=== PATIENT | male | born 2000 | race Caucasian/White ===

== ENCOUNTER 2025-08-27 18:11 | Emergency (ER) | payer OTHER ==
[~2025-08-27] VITALS: Ht 162.6 cm; Wt 74.8 kg
[2025-08-27 18:33] VITALS: BP 137/86; PULSE 101; RESP 18; TEMP 98.1; O2SAT 100
[2025-08-27] MEDS ORDERED: OLOP5DRO21 OP (18:43)
[2025-08-27] MEDS ORDERED: CARB10DR OP (18:43)
--- NOTE | 2025-08-27 18:43 | ERN ---
General Chief Complaint: Blurred/Double Vision Stated Complaint: BLURRED VISION Time Seen by MD: 18:18 Source: patient, family History of Present Illness Initial Comments PATIENT IS A 24-YEAR-OLD MALE COMING IN COMPLAINING OF ITCHINESS IN HIS EYES. PER PATIENT HE HAS BEEN DRINKING A WEEK AGO STARTED HAVING ITCHY IN HIS IN HIS EYES BLURRY IN HIS WAS EVALUATED AT ANOTHER ER SENT HOME. HE STATES THAT HIS VISUAL ACUITY TEST AT THE TIME WAS NORMAL HE STATES HE FEELS LESS SYMPTOMATIC BUT IS HERE FOR FURTHER EVALUATION Allergies: Coded Allergies: No Known Drug Allergies (Unverified Allergy, Unknown, 08/27/25) Past Medical History Past Medical History: Other Medical History Other: ADHD Past Surgical History: None ROS Dictation CONSTITUTIONAL: NO CHILLS, NO FEVER, NO WEAKNESS, NO DIAPHORESIS, NO MALAISE. HEAD/FACE: NO SIGNS OF TRAUMA. EENT: NO EYE PAIN, NO BLURRED VISION, NO TEARING, NO DOUBLE VISION, NO EAR PAIN, NO EAR DISCHARGE, NO NOSE PAIN, NO NASAL CONGESTION, NO THROAT PAIN, NO THROAT SWELLING, NO MOUTH PAIN. RESPIRATORY: NO COUGH, NO ORTHOPNEA, NO SOB, NO STRIDOR, NO WHEEZING. CARDIOVASCULAR: NO CHEST PAIN, NO EDEMA, NO PALPITATIONS, NO SYNCOPE. GASTROINTESTINAL/ABDOMINAL: NO ABDOMINAL PAIN, NO CONSTIPATION, NO DIARRHEA, NO NAUSEA, NO VOMITING. GENITOURINARY: NO ABNORMAL DISCHARGE, NO DYSURIA, NO FREQUENT URINATION, NO HEMATURIA. NO COMPLAINTS OF PAIN IN THE GENITALS. MUSCULOSKELETAL: NO BACK PAIN, NO GOUT, NO JOINT PAIN, NO JOINT SWELLING, NO MUSCLE PAIN, NO MUSCLE STIFFNESS, NO NECK PAIN. INTEGUMENTARY: NO CHANGE IN COLOR, NO CHANGE IN HAIR/NAILS, NO DRYNESS, NO LESION, NO LUMPS, NO RASH. NEUROLOGICAL/PSYCH: NO ANXIETY, NOT DEPRESSED, NO EMOTIONAL PROBLEM, NO HEADACHE, NO NUMBNESS, NO PRE-EXISTING DEFICIT, NO HISTORY OF SEIZURES, NO TREMORS, NO WEAKNESS. HEMATOLOGIC/LYMPHATIC: NOT ANEMIC, NO HISTORY OF BLOOD CLOTS, NO APPARENT BLEEDING, NO BRUISING, GLANDS NOT SWOLLEN. ALL SYSTEMS NEGATIVE, EXCEPT NOTED. Physical Exam Physical Exam Dictation VITAL SIGNS: REVIEWED. GENERAL APPEARANCE: ALERT, ORIENTED X3, NO ACUTE DISTRESS, OBESE. HEAD AND FACE: NON-TRAUMATIC. EYES: PERRL, PINK CONJUNCTIVAS, EYELID NO TRAUMA, ANTERIOR CHAMBER CLEAR. EARS: PINNAS INTACT AND NO SIGNS OF TRAUMA OR ERYTHEMA. EAR CANALS CLEAR AND NO DISCHARGE. TMS NO ERYTHEMA. NOSE: NO DISCHARGE, NO BLEEDING. OROPHARYNX: MOUTH NORMAL, TEETH NO CARIES, TONGUE PINK. PHARYNX CLEAR, NO ERYTHEMA. TONSILS NO EXUDATES, NO ABSCESSES NOTED. MUCOUS MEMBRANE MOIST. NECK: SUPPLE, NON-TENDER, NO THYROMEGALY, NO MASSES, NO JVD, NO BRUITS. BREAST: DEFERRED. CHEST: NO TENDERNESS, NO CREPITUS, NO PARADOXICAL MOVEMENT, NO RETRACTIONS. LUNGS: CLEAR, WELL-VENTILATED, SYMMETRIC, NO RALES, NO WHEEZING, NO RHONCHI, NO STRIDOR, GOOD BREATH SOUNDS BILATERALLY. HEART: REGULAR RATE, REGULAR RHYTHM, NO MURMUR, NO GALLOPS. VASCULAR: NO PERIPHERAL EDEMA. ABDOMEN: SOFT, POSITIVE BOWEL SOUNDS, NONDISTENDED, NO GUARDING, NONTENDER, NO REBOUND, NO MASSES NO HEPATOMEGALY, NO SPLENOMEGALY, NO BRENNAN'S SIGN, NO HERNIAS. RECTAL: DEFERRED. GENITAL: DEFERRED. NEUROLOGICAL: NORMAL SPEECH, GROSS MOTOR FUNCTION INTACT, GROSS SENSORY FUNCTION INTACT. MUSCULOSKELETAL: NECK NONTENDER, FULL RANGE OF MOTION, BACK NONTENDER, FULL RANGE OF MOTION. EXTREMITIES: NONTENDER, FULL RANGE OF MOTION. SKIN: COLOR PINK, DRY, NO TURGOR, NO RASH, NO LACERATIONS, NO ABRASIONS, NO CONTUSIONS. LYMPHATICS: DEFERRED. Results Laboratory and Microbiology Labs Reviewed?: Yes MDM MDM: DIFFERENTIAL DIAGNOSIS: CONJUNCTIVITIS, BLURRY VISION, ALLERGIC CONJUNCTIVITIS, RATIONALE: TESTS CONSIDERED AND ORDERED SECONDARY TO SHARED DECISION MAKING INCLUDE: PREVIOUS OUTSIDE RECORDS REVIEWED: OLD ER VISITS. RISK OF COMPLICATION AND/OR MORBIDITY OR MORTALITY OF PATIENT MANAGEMENT: NONE MEDICATIONS-PER MEDICATION RECONCILIATION NEED FOR HOSPITALIZATION: PATIENT DOES NOT MEET CRITERIA FOR HOSPITALIZATION. NEED FOR EMERGENCY MAJOR/MINOR SURGERY: NO THERE ARE NO SOCIAL CONCERNS WITH THIS PATIENT. PATIENT IS A 24-YEAR-OLD GENTLEMAN COMING IN PULLING ITCHY IN HIS DRY SENSATION. ON PHYSICAL EXAM PATIENT IS BLINKING VISUAL ACUITY WITH A NORMAL LIMITS. BASED ON MY FINDINGS PATIENT HAS A MORE OF DRY EYES CONJUNCTIVITIS VERSUS ALLERGIC CONJUNCTIVITIS WE WILL BE DISCHARGED WITH TOPICAL ANTIHISTAMINES. DID ADVISED HIM APPROPRIATE FOLLOW UP WITH THE ACCOUNTANT CERTIFIED PUBLIC FOR ONGOING EVALUATION. ED Course Vital Signs Date Time Temp Pulse Resp B/P (MAP) Pulse Ox O2 Delivery O2 Flow Rate FiO2 08/27/25 18:33 98.1 101 18 137/86 100 Room Air* 0 21 08/27/25 18:16 98.2 81 18 141/75 98 DX & DISP Disposition: Discharge Departure Impression: Primary Impression: Allergic conjunctivitis Additional Impression: Dry eyes, bilateral Condition: Stable Scripts Carboxymethyl/Glycerin/Poly80 (Refresh Optive Advanced Drops) 0.5 %-1 %-0.5 % Drops 1 DROP OP QID, #120 ML 0 Refills Prov: SOLO GIRON MD 08/27/25 Olopatadine HCl (Pataday) 0.1 % Drops 1 DROP OP BID for 30 Days, #5 ML 0 Refills Prov: SOLO GIRON MD 08/27/25 Additional Instructions: FOLLOW-UP WITH PRIMARY CARE PROVIDER IN 1 TO 2 DAYS. TAKE MEDICATIONS DIRECTED HERE IN THE EMERGENCY ROOM. OKAY TO CONTINUE HOME MEDICATIONS UNLESS OTHERWISE DISCUSSED DURING YOUR VISIT IN THE EMERGENCY ROOM TODAY. RETURN TO YOUR NEAREST EMERGENCY ROOM IF SYMPTOMS WORSEN OR IF THERE IS NO IMPROVEMENT. CALL 911 IF YOU NEED IMMEDIATE ASSISTANCE. TAKE TYLENOL [id number] NEEDED AND IF NO CONTRAINDICATIONS ARE PRESENT. INCREASE ORAL HYDRATION. A WOUND CULTURE OR URINE CULTURE WAS ORDERED HERE IN THE EMERGENCY ROOM DEPARTMENT PLEASE FOLLOW-UP WITH PRIMARY CARE PROVIDER AND ADVISE THEM TO GET REPORTS FROM OUR FACILITY. IF YOU HAD ANY CECILIA WRAP/SPLINTS THAT WERE APPLIED HERE, PLEASE DO NOT REMOVE THEM UNTIL YOU SEE YOUR PRIMARY CARE OR SPECIALTY. REFERRALS: Referrals: NONE (PCP) CONNER FRANCO MD Time of Disposition: 18:42 SOLO GIRON MD Aug 27, 2025 18:43
== END 2025-08-27 18:50 | disposition home or self-care (01) ==
LOC: EDH 18:11
DX: H10.13 Acute atopic conjunctivitis, bilateral (principal); R68.89 Other general symptoms and signs
CPT/HCPCS: 99282